=== PATIENT | male | born 1960 | race American Indian/Alaskan Native ===

== ENCOUNTER 2019-11-28 10:10 | Outpatient (CLI) | payer OTHER ==
--- NOTE | 2019-11-28 11:17 | Cat Scan Report ---
CT RIGHT KNEE WITHOUT CONTRAST INDICATION / CLINICAL INFORMATION: MAIN: R KNEE PAIN CHRONIC PAIN NO INJURY. TECHNIQUE: All CT scans at this location are performed using CT dose reduction for ALARA by means of automated e xposure control. Axial CT images were obtained to the right knee with coronal and sagittal 2-D recons truction images produced. COMPARISON: None available. FINDINGS: JOINT SPACE: Moderate tricompartment degenerative arthrosis with joint space narrowing and marginal o steophyte formation. Moderate joint effusion and synovitis. Small popliteal cyst. Small ossified bodi es in the posterior joint space and along the popliteus tendon sheath. BONES: No fracture. No osseous lesion. PATELLOFEMORAL ALIGNMENT: No significant abnormality. TENDONS / LIGAMENTS: Moderate focal thickening of the proximal patellar tendon characteristic of tend inosis. SOFT TISSUES: Mild anterior subcutaneous soft tissue edema. Moderately prominent medial varicose vein s. ADDITIONAL FINDINGS: None. IMPRESSION: 1. Moderate tricompartment right knee degenerative arthrosis. 2. Moderate joint effusion with synovitis. 3. Proximal patellar tendinosis. 4. Medial varicose veins. Signer Name: Johnnie Lyman MD Signed: 11/28/2019 11:13 AM Workstation Name: [id number]
== END 2019-11-28 10:11 | disposition home or self-care (01) ==
LOC: CT 10:10
DX: M17.11 Unilateral primary osteoarthritis, right knee (principal); M65.861 Other synovitis and tenosynovitis, right lower leg; M25.461 Effusion, right knee; M71.21 Synovial cyst of popliteal space [Baker], right knee; M67.863 Other specified disorders of tendon, right knee